=== PATIENT | male | born 1985 | race African-American/Black ===

== ENCOUNTER 2019-01-23 10:05 | Emergency (ER) | payer MEDICAID ==
[~2019-01-23] VITALS: Ht 172.7 cm; Wt 64.0 kg
[2019-01-23] MEDS ORDERED: MORPHINE SULFATE 4 MG/ML CPJ (NOT FOR IM USE) IV ONE (11:00)
[2019-01-23] MEDS ORDERED: ONDANSETRON HCL 4MG/2ML INJ IV ONE (11:00)
[2019-01-23 11:31] LABS: BASOPHILS % 0.6 % (0.0-2.0); EOSINOPHILS % 2.7 % (0.0-5.0); HEMATOCRIT. 43.1 % (42.0-52.0); HEMOGLOBIN. 14.4 g/dL (14.0-18.0); LYMPHOCYTES % 17.8 % (20.0-50.0); MEAN CORPUSCULAR HEMOGLOBIN 28.3 pg (28.0-32.0); MEAN PLATELET VOLUME 6.8 fl (7.4-10.4); NEUTROPHILS % 70.9 % (40.0-76.0); PLATELET 289 x1000/uL (130-400); RED BLOOD CELL COUNT 5.07 mill/uL (4.7-6.1)
[2019-01-23 11:37] LABS: CHLORIDE 105 mEq/L (98-107)
[2019-01-23] MEDS ORDERED: ASPIRIN 325MG EC TABLET PO ONE (12:15)
[2019-01-23] MEDS ORDERED: ONDANSETRON HCL 4MG/2ML INJ IV PRN (13:45)
[2019-01-23] MEDS ORDERED: LORAZEPAM 0.5MG TABLET PO PRN (13:45)
[2019-01-23] MEDS ORDERED: ACETAMINOPHEN 325MG TABLET PO PRN (13:45)
[2019-01-23] MEDS ORDERED: MAGNESIUM/ALUMINUM HYDROXIDE/SIMETHICONE 30ML UDC PO PRN (13:45)
[2019-01-23] MEDS ORDERED: CLONIDINE 0.1MG TABLET PO PRN (13:45)
[2019-01-23] MEDS ORDERED: GUAIFENESIN 200MG/10ML SUGAR FREE UDC PO PRN (13:45)
[2019-01-23] MEDS ORDERED: KETOROLAC 15MG/ML VIAL IV PRN (13:45)
[2019-01-23] MEDS ORDERED: DOCUSATE SODIUM 100MG CAPSULE PO PRN (13:45)
[2019-01-23] MEDS ORDERED: NITROGLYCERIN 0.4MG TABLET SL SL PRN (13:45)
[2019-01-23] MEDS ORDERED: ENOXAPARIN 40MG/0.4ML SYR SUBCUT SCH (13:45)
[2019-01-23] MEDS ORDERED: ZOLPIDEM TARTRATE 5MG TABLET PO PRN (13:45)
[2019-01-23] MEDS ORDERED: IPRATROPIUM/ALBUTEROL 0.5-3(2.5)MG/3ML NEB NEB PRN (13:45)
[2019-01-23 14:21] VITALS: BP 125/74
[2019-01-23] MEDS ORDERED: SUCRALFATE 1 G/10 ML UDC PO SCH (17:00)
[2019-01-23] MEDS ORDERED: FAMOTIDINE 20MG TABLET PO SCH (21:00)
[2019-01-24] MEDS ORDERED: ASPIRIN 325MG EC TABLET PO SCH (09:00)
== END 2019-01-23 14:24 | disposition left against medical advice (07) ==
LOC: ER 10:05 → EDBEDREQ 12:08 → ER 14:24 → CANBEDREQ 17:11
DX: R07.9 Chest pain, unspecified (principal); R06.02 Shortness of breath
CPT/HCPCS: 36415; 71045; 80053; 80061; 80320; 82962; 83036; 83880; 84484; 85025; 93005; 96374; 96375; 99284; J2270; J2405; Z7610; G0480

== ENCOUNTER 2024-09-25 10:33 | Emergency (ER) | payer MEDICAID ==
[~2024-09-25] VITALS: Ht 185.4 cm; Wt 107.0 kg
[2024-09-25 10:35] VITALS: O2SAT 97
[2024-09-25 11:26] LABS: CHLORIDE 103 mEq/L (98-107); SODIUM 134 mEq/L (136-145)
[2024-09-25 11:27] LABS: CARBON DIOXIDE 25 mEq/L (21-32)
[2024-09-25 11:32] LABS: CREATININE 1.1 mg/dL (0.6-1.3); GLUCOSE 114 mg/dL (70-105); UREA NITROGEN BLOOD 14 mg/dL (9-23)
[2024-09-25 11:52] LABS: TROPONIN I HIGH SENSITIVITY < 4 ng/L (3.0-53)
[2024-09-25 11:53] LABS: BASOPHILS % 0.7 % (0.0-2.0); EOSINOPHILS % 1.4 % (0.0-5.0); HEMATOCRIT. 42.8 % (42.0-52.0); HEMOGLOBIN. 14.4 g/dL (14.0-18.0); LYMPHOCYTES % 17.4 % (20.0-50.0); MEAN CORPUSCULAR HEMOGLOBIN 27.2 pg (28.0-32.0); MEAN CORPUSCULAR HGB CONC 33.6 g/dL (31.0-37.0); MEAN CORPUSCULAR VOLUME 81.1 fL (80.0-94.0); MEAN PLATELET VOLUME 7.4 fl (7.4-10.4); MONOCYTES % 10.2 % (2.0-8.0); NEUTROPHILS % 70.3 % (40.0-76.0); PLATELET 397 x1000/uL (130-400); RED BLOOD CELL COUNT 5.28 mill/uL (4.7-6.1); RED CELL DISTRIBUTION WIDTH 14.5 % (11.6-14.6); WHITE BLOOD COUNT 13.2 x1000/uL (4.5-11.0)
[2024-09-25 11:58] LABS: INR 1.1; PROTHROMBIN TIME 11.4 sec (9.6-11.0)
[2024-09-25 12:06] LABS: ALANINE AMINOTRANSFERASE 101 IU/L (10-49); ALBUMIN 5.4 g/dL (3.2-4.8); ASPARTATE AMINOTRANSFERASE 58 IU/L (<34); BILIRUBIN DIRECT 0.2 mg/dL (<=3.0)
[2024-09-25 12:07] LABS: BILIRUBIN TOTAL 0.5 mg/dL (0.1-1.0)
[2024-09-25] MEDS ORDERED: MORPHINE SULFATE 4 MG/ML INJ (FOR IV/IM USE) IV ONE (12:30)
[2024-09-25] MEDS: ONDANSETRON HCL 4MG/2ML INJ IV ONE (12:48)
[2024-09-25 14:24] VITALS: BP 143/92; PULSE 60; RESP 17; TEMP 36.6; O2SAT 96
[2024-09-25] MEDS ORDERED: IOHEXOL-300 100 ML BOTTLE ONE (15:10)
== END 2024-09-25 14:26 | disposition home or self-care (01) ==
LOC: ER 10:33
DX: R10.13 Epigastric pain (principal); I25.2 Old myocardial infarction; Z90.49 Acquired absence of other specified parts of digestive tract; I25.10 Atherosclerotic heart disease of native coronary artery without angina pectoris
CPT/HCPCS: 99285; 74177; 96374; 80076; 80048; 83690; 85025; 85610; 86850; 86900; 86901; 84484; 36415; 93005; Q9967; J2405